=== PATIENT | female | born 1950 | race Caucasian/White ===

== ENCOUNTER 2021-05-31 05:55 | Day surgery (SDC) | payer MEDICARE, OTHER ==
[~2021-05-31] VITALS: Ht 147.3 cm; Wt 98.0 kg
[~2021-05-31 05:55] MED LIST: ALLERCLEAR10 MG PO; ANTACID ULTRA1177 MG PO; CLONAZEPAM1 MG PO; COLESTID1 GM PO; CRANBERRY CONC500 MG PO; DOK250 MG PO; FEOSOL325 MG PO; GAS RELIEF80 MG PO; GLUCOPHAGE500 MG PO; LAMOTRIGINE200 M1 PO; LANTUS SOL100 UNIT/1 SUB-Q; LEVOTHYROXINE125 MCG PO; MAPAP325 MG PO; METOPROLOL SUCC50 MG PO; RISPERDAL M-TAB3 MG PO; RISPERIDONE1 MG PO; ZESTRIL40 MG PO
[2021-05-31] MEDS ORDERED: OMEPRAZOLE20 MG PO (06:27)
[2021-05-31] MEDS ORDERED: LEVEMIR FL100 UNIT/2 (06:28)
--- NOTE | 2021-05-31 07:15 | NUR ---
0620 caregiver gave info for pt. pt talks with words randomly. 0624 oral versed given. 0650 getting relaxed. able to start iv. e commerce marketing analyst called to come given more sedation so wouldnt pull iv out. 0710 blood drawn for labs. pt tolerating well.
--- NOTE | 2021-05-31 08:31 | NUR ---
05/31/21 0831 KEVIN MOROCHO 0814-PATIENT TO PACU ON 6L VIA MASK. PATIENT IS NONAROUSABLE. ORAL AIRWAY IN PLACE. RESP EVEN AND UNLABORED.
--- NOTE | 2021-05-31 10:13 | NUR ---
O2 WEANED TO ROOM AIR. SPO2 REMAINS ABOVE 93% ON ROOM AIR. EATS PUDDING. REFUSES BP AND HITS THIS NURSE. REASSURABLE AND CALMS EASILY BUT CANNOT HOLD STILL FOR BP.
--- NOTE | 2021-05-31 11:13 | NUR ---
PT EATING PUDING WITHOUT PROBLEM. TAKES SIPS OF WATER. REVIEWED DISCHARGE INSTRUCTIONS WITH CAREGIVER AND PROVIDED COPY OF DISCHARGE INSTRUCTION. PT DRESSES WITH HELP OF CAREGIVER. STEADY ON FEET WITH ONE PERSON STAND BY ASSIST. WHEELED TO VAN AND ASSISTED PATIENT GETTING IN.
== END 2021-05-31 11:05 | disposition home or self-care (01) ==
LOC: DS 05:55 → OPS 05:55 → DS 06:45 → OPS 11:05
PROVIDERS: ATTEND Dentist General Practice
PROC: 0CQW0Z1 Repair of Upper Tooth, Multiple, Open Approach (ICD-10-PCS; principal; 2021-05-31 06:45)
DX: K08.409 Partial loss of teeth, unspecified cause, unspecified class (principal); K05.6 Periodontal disease, unspecified; E11.9 Type 2 diabetes mellitus without complications; Z79.4 Long term (current) use of insulin
CPT/HCPCS: 00170; 70310; 80048; 85025; J0330; J1100; J1885; J2250; J2405; J2704; J2765; J3010; J7121

== ENCOUNTER 2024-03-04 18:48 | Inpatient (IN) | payer MEDICARE, OTHER ==
[~2024-03-04] VITALS: Ht 154.9 cm; Wt 49.4 kg
[~2024-03-04 18:48] MED LIST changes: -ANTACID ULTRA1177 MG PO; +ARTIFICIAL TEA1 EACH OPTH; +CALCIUM500 MG PO; +CLOTRIMAZOLE30 ML TOP; +COLACE100 MG PO; -CRANBERRY CONC500 MG PO; +CRANBERRY425 MG PO; +DEEP SEA44 ML NAS; -DOK250 MG PO; +LACTULOSE10 GM PO; +LAMICTAL25 MG PO; -LAMOTRIGINE200 M1 PO; +LEVEMIR FL100 UNIT/2; -MAPAP325 MG PO; +METOPROLOL TART50 MG PO; +MULTI VITAMIN1 EACH PO; +OMEPRAZOLE20 MG PO; +PRENATAL PLUS1 EAC2 PO; +ROSUVASTATIN CAL5 MG PO; +TOUJEO MAX300 UNIT/1; +TRAMADOL HCL50 MG PO; +TYLENOL325 MG PO
--- OUTSIDE RECORDS SUMMARY | 2024-03-04 18:55 | XMS ---
PreManage Notification: SANTI FRAGOSO Security [employer] Operator Events No recent Security Events currently on file CRITERIA MET - [facility] - 2 Visits in 30 Days CARE PROVIDERS -, [facility]ist: Beveller Operator [facility] PHONE: [phone] - [place]- Dentist: Beveller Operator [facility] PHONE: [phone] [place], [facility]/Center: [facility] ([facility]) PHONE: [phone] Alfredo has no Care Guidelines for this patient. E.D. VISIT COUNT (12 MO.) [address] Elvira Arthur (Mauri Dotson) 1 WILLIE Ramos TOTAL 5 NOTE: Visits indicate total known visits. ED/UCC VISIT TRACKING (12 MO.) 03/04/2024 18:49 [facility] TYPE: Emergency COMPLAINT: - STOMACH PAIN 03/04/2024 15:00 [facility] Sandhya Dotson TETE (Mauri Dotson) TYPE: Emergency DIAGNOSES: - Epigastric pain - Unspecified abdominal pain - abd pain - Abdominal Pain 03/01/2024 19:06 [facility] Mauri Dotson TETE (Mauri Dotson) TYPE: Emergency DIAGNOSES: - Chronic vascular disorders of intestine - Hematuria, unspecified - Urinary tract infection, site not specified - Abdominal Pain - poss UTI 11/23/2023 15:49 [facility] Mauri Doston TETE (Mauri Dotson) TYPE: Emergency DIAGNOSES: - Type 2 diabetes mellitus with hyperglycemia - Elevated Blood Sugar (Asymptomatic) - High Blood Sugar (Symptomatic) 10/10/2023 12:13 [facility] Mauri Dotson TETE (Mauri Dotson) TYPE: Emergency DIAGNOSES: - Hyperglycemia, unspecified - High blood pressure - High Blood Sugar (Symptomatic) INPATIENT VISIT TRACKING (12 MO.) No inpatient visits to display in this time frame [email or web address]
[2024-03-04] MEDS ORDERED: MORPHINE SULFATE 4 MG/ML VIAL IV ONE (19:45)
[2024-03-04] MEDS ORDERED: ondansetron HCL 4 MG/2 ML VIAL IV ONE (19:45)
[2024-03-04 20:21] LABS: BASOPHILS 1.1 % (0-2); EOSINOPHILS 3.8 % (0-6); HEMATOCRIT 39.7 % (35.0-50.0); HEMOGLOBIN 13.6 g/dL (12.0-18.0); LYMPHOCYTES 16.4 % (24-44); MCH 32.9 (27-36); MCHC 34.3 g/dl (30-36); MCV 95.9 fl (81-99); MONOCYTES 8.9 % (0-12); NEUTROPHILS 69.8 % (39-80); PLATELET COUNT 207 K/uL (140-440); RBC 4.14 M/ul (4.3-5.7); RDW 12.6 (10.5-15.0)
[2024-03-04 20:30] LABS: ALBUMIN 3.1 g/dL (3.4-5.0); ALBUMIN/GLOBULIN RATIO 0.78 (1.1-2.4); ANION GAP 13.5 (7-21); BILIRUBIN, TOTAL 0.2 ng/dL (0.2-1.0); BUN/CREATININE RATIO 12.22 (6.0-28.6); CALCIUM 9.3 mg/dL (8.5-10.1); CREATININE, SERUM 0.9 mg/dL (0.55-1.02); MAGNESIUM 1.4 mg/dL (1.8-2.4); POTASSIUM 4.5 mmol/L (3.5-5.1); PROTEIN, TOTAL 7.1 g/dL (6.4-8.2)
[2024-03-04] MEDS ORDERED: levoFLOXacin 500 MG/100 ML BAG IV ONE (20:30)
[2024-03-04] MEDS ORDERED: PIPERACILLIN/TAZOBACTAM 3.375 GM in DEXTROSE 5% 100 ML IV ONE (20:30)
[2024-03-04] MEDS ORDERED: DEXTROSE 5% 100 ML IV ONE (20:34)
[2024-03-04 20:55] LABS: LACTIC ACID, BLOOD 0.6 mmol/L (0.4-2.0)
[2024-03-04] MEDS ORDERED: MAGNESIUM SULFATE 2 GM/50 ML BAG IV ONE (21:15)
[2024-03-04] MEDS ORDERED: CEFDINIR300 MG PO (21:34)
[2024-03-04] MEDS ORDERED: FEROSUL325 MG PO (21:35)
[2024-03-04] MEDS ORDERED: LACTULOSE10 GM/15 M PO (21:36)
[2024-03-04] MEDS ORDERED: METFORMIN HCL500 MG PO (21:37)
[2024-03-04] MEDS ORDERED: MILK OF MA400 MG/5 M PO (21:37)
[2024-03-04] MEDS ORDERED: ondansetron HCL 4 MG/2 ML VIAL IV PRN (22:00)
[2024-03-04] MEDS ORDERED: DEXTROSE 5% 1,000 ML IV PRN (22:00)
[2024-03-04] MEDS ORDERED: ACETAMINOPHEN 325 MG TAB PO PRN (22:00)
[2024-03-04] MEDS ORDERED: DEXTROSE 50% 50 ML SYR IV PRN ×2 (22:00)
[2024-03-04] MEDS ORDERED: IBLOOD GLUCOSE TEST STRIP 1 EA TEST XX PRN (22:00)
[2024-03-04] MEDS ORDERED: GLUCAGON,HUMAN RECOMBINANT 1 MG/ML VIAL SUB-Q PRN (22:00)
[2024-03-04] MEDS ORDERED: LACTATED RINGER'S 1,000 ML IV SCH (22:00)
[2024-03-04 22:31] VITALS: BP 174/84
[2024-03-04] MEDS ORDERED: TOUJEO SOL300 UNIT/1 SUB-Q (22:42)
--- NOTE | 2024-03-04 22:45 | NUR ---
PATIENT TO FLOOR BY LIBRARY CIRCULATION CLERK. PATIENT TRANSFERRED FROM STRETCHER TO BED WITH SBA. SKIN ASSESSMENT COMPLETE. ASSESSMENT COMPLETE. CAREGIVER IN ROOM. CAREGIVER STATES THAT PATIENT WILL PRETEND TO CHOKE AND GRAB AT STAFF UPON OCCASION AND "THIS IS NORMAL FOR HER". CAREGIVER STATES NOT TO WORRY WHEN SHE ACTS LIKE SHE IS CHOKING, AND SHE SWALLOWS PILLS WELL WITH PUDDING. PATIENT IV FLUID INFUSING PER ORDER. PATIENT BED ALARM ON FOR SAFETY. PATIENT AND CAREGIVER EDUCATED TO ROOM AND CALL LIGHT. PATIENT HAS NO FURTHER NEEDS. CALL LIGHT IN REACH.
[2024-03-04] MEDS ORDERED: risperiDONE 1 MG TAB PO SCH (23:21)
[2024-03-04] MEDS ORDERED: DICLOFENAC 1% TOPICAL GEL TOP PRN (23:30)
[2024-03-04] MEDS ORDERED: LORazepam 2 MG/ML VIAL IV PRN (23:30)
[2024-03-04] MEDS ORDERED: LIDOCAINE HCL 4% 1 EACH PATCH TD SCH (23:45)
[2024-03-05] VITALS (10 sets, daily range): BP systolic 144–170; BP diastolic 67–99
--- NOTE | 2024-03-05 00:04 | NUR ---
SCHEDULED MEDICATION ADMINISTERED FUAD ELLISON. PATIENT ARIANA WELL. PATIENT REQUESTING DIET COKE. NO DIET COKE ON FLOOR, DIET SPRITE PROVIDED. PATIENT NOW NPO AT MIDNIGHT. FOOD AND DRINK REMOVED. CAREGIVER AWARE OF PATIENT NPO STATUS. LIDOCANE PATCH APPLIED TO LEFT LEG. NO FURTHER NEEDS. BED ALARM ON FOR SAFETY. CALL LIGHT IN REACH.
--- NOTE | 2024-03-05 01:23 | NUR ---
VS OBTAINED AND RECORDED. PATIENT ARIANA WELL. CAREGIVER AT BEDSIDE. NO FURTHER NEEDS. CALL LIGHT IN REACH.
--- NOTE | 2024-03-05 04:11 | NUR ---
THIS RN HEARD PATIENT SHOUTING OUT FROM ROOM. PATIENT CAREGIVER STATES THAT THIS BEHAVIOR IS NORMAL OTHER THAN HER NOT SLEEPING AT ALL. THIS RN WAS STANDING AT BEDSIDE, PATIENT ATTEMPTED TO KICK. THIS RN OFFERED PRN ANXIETY/AGITATION MEDICATION. PATIENT THAN THREW HER PILLOW AT THIS RN AND THEN SAID "GET OU!". PRN MEDICATION ADMINISTERED. BED ALARM ON FOR SAFETY. CALL LIGHT IN REACH.
[2024-03-05 05:25] LABS: BASOPHILS 0.7 % (0-2); EOSINOPHILS 3.4 % (0-6); HEMATOCRIT 38.1 % (35.0-50.0); HEMOGLOBIN 12.8 g/dL (12.0-18.0); LYMPHOCYTES 18.5 % (24-44); MCH 32.5 (27-36); MCHC 33.5 g/dl (30-36); MCV 96.7 fl (81-99); MONOCYTES 11.6 % (0-12); NEUTROPHILS 65.8 % (39-80); PLATELET COUNT 192 K/uL (140-440); RBC 3.94 M/ul (4.3-5.7); RDW 12.5 (10.5-15.0)
[2024-03-05 05:39] LABS: ALBUMIN 2.9 g/dL (3.4-5.0); ALBUMIN/GLOBULIN RATIO 0.74 (1.1-2.4); ANION GAP 12.5 (7-21); BILIRUBIN, TOTAL 0.3 ng/dL (0.2-1.0); BUN/CREATININE RATIO 9.78 (6.0-28.6); CREATININE, SERUM 0.92 mg/dL (0.55-1.02); PHOSPHORUS, INORGANIC 3.8 mg/dL (2.5-4.9); POTASSIUM 4.5 mmol/L (3.5-5.1); PROTEIN, TOTAL 6.8 g/dL (6.4-8.2)
--- NOTE | 2024-03-05 06:53 | NUR ---
PATIENT INCONTINENT OF URINE. NEW BEDDING, BRIEF, DAYANA, AND SLIDE SHEET PLACED. PUREWICK PLACED AFTER DESTINI CARE PROVDIED. BED ALARM ON FOR SAFETY. NO CURRENT NEEDS. CALL LIGHT IN REACH.
[2024-03-05] MEDS ORDERED: LEVOTHYROXINE SODIUM 125 MCG TAB PO SCH (07:00)
[2024-03-05] MEDS ORDERED: CEFEPIME HCL/D5W 1 GM/100 ML PIGGYBACK IV SCH (07:30)
[2024-03-05] MEDS ORDERED: IBLOOD GLUCOSE TEST STRIP 1 EA TEST VI SCH ×2 (08:00→20:00)
[2024-03-05] MEDS ORDERED: INSULIN LISPRO 100 UNIT/ML ML SUB-Q SCH ×2 (08:00→21:00)
--- NOTE | 2024-03-05 08:28 | NUR ---
PATIENT IN BED AT THIS TIME. NONDESTRUCTIVE TESTER WENT INTO PATIENTS ROOM FOR HOURLY ROUNDINGS AND FOR BLOODSUGAR CHECKS. CAREGIVER AT BEDSIDE. CALL LIGHT WITHIN REACH, NO FURTHER NEEDS AT THIS TIME.
[2024-03-05] MEDS ORDERED: ENOXAPARIN SODIUM 40 MG/0.4 ML SYR SUB-Q SCH (09:00)
[2024-03-05] MEDS ORDERED: PANTOPRAZOLE SODIUM 40 MG/10 ML VIAL IV SCH (09:00)
[2024-03-05] MEDS ORDERED: lamoTRIgine 25 MG TAB PO SCH (09:00)
[2024-03-05] MEDS ORDERED: lisinopriL 20 MG TAB PO SCH (09:00)
[2024-03-05] MEDS ORDERED: LIDOCAINE HCL 4% 1 EACH PATCH TD SCH (09:00)
[2024-03-05] MEDS ORDERED: METOPROLOL TARTRATE 50 MG TAB PO SCH (09:00)
[2024-03-05] MEDS ORDERED: CEFEPIME HCL/D5W 2 GM/100 ML PIGGYBACK IV SCH (09:00)
--- NOTE | 2024-03-05 09:09 | NUR ---
ADMIN ATIVAN 1MG IV SLOW PUSH FOR ANXIETY. PATIENT YELLING, SHE IS ABLE TO CALM DOWN A BIT. PATIENT SITTER AT BEDSIDE FROM PATIENT'S FACILITY.
[2024-03-05] MEDS ORDERED: FAMOTIDINE20 MG PO (10:49)
--- NOTE | 2024-03-05 11:20 | NUR ---
Patient left unit with charge nurse for stat ct of abdomen.
[2024-03-05] MEDS ORDERED: PHARMACY RENAL DOSE ADJUSTMENT 1 DOSE MISC PO SCH (12:00)
--- NOTE | 2024-03-05 12:04 | NUR ---
PATIENT BLADDER SCANNED AT THIS TIME. PER BEDSIDE SCANNER-897ML NOTED. PT UP TO BEDSIDE COMMODE TO VOID AT THIS TIME. PT VOIDED 1150ML CLEAR YELLOW URINE. DRY BRIEF PLACED AT THIS TIME. FACILITY SITTER REMAINS AT BEDSIDE, SHE HAS BEEN HELPING WITH BASIC ADL CARES.
--- NOTE | 2024-03-05 12:16 | NUR ---
PATIENT IN BED AT THIS TIME. BLOOD SUGAR HAS BEEN CHARTED. CALL LIGHT WITHIN REACH, NO FURTHER NEEDS AT THIS TIME.
--- NOTE | 2024-03-05 13:26 | NUR ---
ELO FROM DR. GARCÍA TO PLACE ORDER FOR RECTAL SUPPOSITORY DAILY FOR CONSTIPATION.
[2024-03-05] MEDS ORDERED: bisacodyL 10 MG SUPP PR SCH (13:30)
--- NOTE | 2024-03-05 13:42 | NUR ---
MED REC COMPLETE
--- NOTE | 2024-03-05 14:50 | NUR ---
Ativan 1mg iv admin for agitation. Rectal suppository admin per order for constipation.
--- NOTE | 2024-03-05 17:10 | NUR ---
BALTA from Dr. Lewis to change diet order to NPO. Order placed at this time.
--- NOTE | 2024-03-05 17:35 | NUR ---
Patient resting in bed, eyes closed, respirations even and non labored. Patient has no distress. Bed alarm intact. IV fluids infusing. Sitter remains at bedside. Personal supplies and call light within reach.
--- NOTE | 2024-03-05 19:28 | NUR ---
RECEIVED REPORT FROM DAY SHIFT RN. PATIENT IS RESTING IN BED. CAREGIVER AT BEDSIDE. NO NEEDS NOTED. NAD NOTED. CALL LIGHT IN REACH.
--- NOTE | 2024-03-05 20:42 | NUR ---
PATIENT HAD BM. MD UPDATED. NEW ORDERS PLACED.
[2024-03-05] MEDS ORDERED: LIDOCAINE PATCH REMOVAL 1 EA TD SCH (21:00)
--- NOTE | 2024-03-05 22:15 | NUR ---
PATIENT IS RESTING IN BED WITH EYES CLOSED, RR 16. CALL LIGHT IN REACH. IV ABX INFUSING PER ORDER. CAREGIVEER AT BEDSIDE. NO NEEDS NOTED. CALL LIGHT IN REACH. BED ALARM ON FOR SAFETY.
--- NOTE | 2024-03-06 00:13 | NUR ---
PATIENT IS RESTING IN BED PLAYING WITH HER BABY DOLL. NAD NOTED. CAREGIVER AT DESIDE. NO NEEDS NOTED. CALL LIGHT IN REACH. BED ALARM ON FOR SAFETY. IV ABX INFUSING PER ORDER.
--- NOTE | 2024-03-06 02:21 | NUR ---
PATIENT IS RESTING IN BED WITH EYES CLOSED, RR 15. CALL LIGHT IN REACH. CAREGIVER AT BEDSIDE. PATIENT IS NOW SL PER ORDER. NAD NOTED. CALL LIGHT IN REACH. BED ALARM ON FOR SAFETY.
--- NOTE | 2024-03-06 04:30 | NUR ---
PATIENT IS RESTING IN BED WITH EYES CLOSED, RR 16. CALL LIGHT IN REACH. BED ALARM ON FOR SAFETY. CAREGIVER AT BEDSIDE.
[2024-03-06 05:16] VITALS: BP 148/84
[2024-03-06 05:23] LABS: BASOPHILS 0.2 % (0-2); EOSINOPHILS 2.8 % (0-6); HEMATOCRIT 39.4 % (35.0-50.0); HEMOGLOBIN 13.7 g/dL (12.0-18.0); LYMPHOCYTES 11.1 % (24-44); MCH 33.4 (27-36); MCHC 34.8 g/dl (30-36); MCV 95.9 fl (81-99); MONOCYTES 8.1 % (0-12); NEUTROPHILS 77.8 % (39-80); PLATELET COUNT 230 K/uL (140-440); RBC 4.11 M/ul (4.3-5.7); RDW 12.4 (10.5-15.0)
[2024-03-06 05:43] LABS: ALBUMIN 3.1 g/dL (3.4-5.0); ALBUMIN/GLOBULIN RATIO 0.82 (1.1-2.4); ANION GAP 13.5 (7-21); BILIRUBIN, TOTAL 0.4 ng/dL (0.2-1.0); BUN/CREATININE RATIO 10.98 (6.0-28.6); CALCIUM 9.3 mg/dL (8.5-10.1); CREATININE, SERUM 0.91 mg/dL (0.55-1.02); MAGNESIUM 1.7 mg/dL (1.8-2.4); POTASSIUM 4.5 mmol/L (3.5-5.1); PROTEIN, TOTAL 6.9 g/dL (6.4-8.2)
--- NOTE | 2024-03-06 05:44 | NUR ---
LAB PRESENT IN ROOM TO DRAW BLOOD. PATIENTS VITALS TAKEN AND RECORDED. PATIENT UP TO BSC A SBA. PATIENT ABLE TO VOID. PATIENT IS BACK IN BED RESTING. PATIENTS INTAKE AND OUTPUT RECORDED. PATIENTS AM MEDS GIVEN IN PUDDING. PATIENTS AM IV ABX INFUSING PER ORDER. PATIENT TOLERATED ACTIVITIEES WELL. NAD NOTED. PATIENTS CAREGIVER AT BEDSIDE AND DENIES ANY NEEDS. CALL LIGHT IN REACH. BED ALARM ON FOR SAFETY.
--- NOTE | 2024-03-06 06:14 | NUR ---
PATIENT IS RESTING IN BED IN RIGHT SIDE WITH EYES CLOSED, RR 15. CALL LIGHT IN REACH. IV INFUSING PER ORDER. BED ALARM ON FOR SAFETY.
[2024-03-06] MEDS ORDERED: POLYETHYLENE GLYCOL 3350 1 PACKET PO ONE ×2 (07:00→09:30)
--- NOTE | 2024-03-06 07:00 | NUR ---
RECIEVED REPORT FROM MEG BURGOS. PATIENT SLEEPING IN BED. RESPIRATIONS EVEN AND UNLABORED. CAREGIVER AT THE BEDSIDE. CALL LIGHT IN REACH.
--- NOTE | 2024-03-06 07:15 | NUR ---
RECEIVED REPORT FROM MEG BURGOS. PT RESTING IN BED WITH EYES CLOSED, BREATHING EVEN AND UNLABORED. CALL LIGHT WITHIN REACH, CAREGIVER AT THE BEDSIDE.
[2024-03-06] MEDS ORDERED: IBLOOD GLUCOSE TEST STRIP 1 EA TEST VI SCH (08:00)
[2024-03-06] MEDS ORDERED: NITROFURANTOIN MONOHYD MACROCR 100 MG CAP PO SCH (08:00)
--- NOTE | 2024-03-06 08:26 | NUR ---
IN ROOM TO ROUND ON PATIENT. PATIENT AWAKE IN BED. CAREGIVER AT THE BEDSIDE FEEDING PATIENT BREAKFAST. NO NEEDS IDENTIFIED AT THIS TIME. CALL LIGHT IN REACH.
[2024-03-06] MEDS ORDERED: PANTOPRAZOLE SODIUM 40 MG TABEC PO SCH (09:00)
[2024-03-06] MEDS ORDERED: lisinopriL 20 MG TAB PO SCH (09:00)
[2024-03-06] MEDS ORDERED: FLU VACC TS2024(65UP)/MF59C/PF 1 EACH SYR IM SCH (09:00)
[2024-03-06] MEDS ORDERED: clonazePAM 1 MG TAB PO SCH (09:02)
[2024-03-06 09:45] VITALS: BP 140/71
[2024-03-06] MEDS ORDERED: SENNA LAX8.6 MG PO (09:53)
[2024-03-06] MEDS ORDERED: NITROFURANTOIN100 M1 PO (09:54)
[2024-03-06] MEDS ORDERED: FLU VACC TS2024(65UP)/MF59C/PF 1 EACH SYR ONE (13:41)
[2024-03-06 13:56] VITALS: BP 116/76
[2024-03-06] MEDS ORDERED: SENNOSIDES 1 TAB PO SCH (21:00)
[2024-03-07 12:18] LABS: HEPATITIS A ANTIBODY, IGM Negative (Negative); HEPATITIS B CORE ANTIBODY, IGM Negative (Negative); HEPATITIS B SURFACE ANTIGEN Negative (Negative); HEPATITIS C AB CIA INTERP Negative (Negative); HEPATITIS C ANTIBODY CIA INDEX 0.02 IV (())
== END 2024-03-06 14:17 | disposition home or self-care (01) | DRG 690 ==
LOC: ED 18:48 → MS 22:07
PROVIDERS: Family Medicine; ADMIT Student in an Organized Health Care Education/Training Program; ATTEND Student in an Organized Health Care Education/Training Program
DX: N39.0 Urinary tract infection, site not specified (principal); K56.7 Ileus, unspecified; R65.10 Systemic inflammatory response syndrome (SIRS) of non-infectious origin without acute organ dysfunction; E11.9 Type 2 diabetes mellitus without complications; Z66 Do not resuscitate; E03.9 Hypothyroidism, unspecified; E78.00 Pure hypercholesterolemia, unspecified; F25.9 Schizoaffective disorder, unspecified; K21.9 Gastro-esophageal reflux disease without esophagitis; I10 Essential (primary) hypertension; M19.91 Primary osteoarthritis, unspecified site; H54.61 Unqualified visual loss, right eye, normal vision left eye; F79 Unspecified intellectual disabilities; R74.01 Elevation of levels of liver transaminase levels; F60.9 Personality disorder, unspecified; F63.9 Impulse disorder, unspecified; M19.90 Unspecified osteoarthritis, unspecified site; Z79.899 Other long term (current) drug therapy; Z79.890 Hormone replacement therapy; Z79.84 Long term (current) use of oral hypoglycemic drugs
CPT/HCPCS: 36415; 74018; 74178; 80053; 80074; 83605; 83735; 84100; 85025; 87088; 90694; 96365; 96367; 96375; 99284-25; A9270; J0692; J1650; J1815; J1956; J2060; J2270; J2405; J2470; J2543; J3475; J7121; Q9967

== ENCOUNTER 2025-01-26 10:35 | Day surgery (SDC) | payer MEDICARE, OTHER ==
[2024-11-16 18:23] VITALS: BP 142/52
[2025-01-17 16:16] VITALS: BP 142/52
[~2025-01-26] VITALS: Ht 154.9 cm; Wt 41.0 kg
[~2025-01-26 10:35] MED LIST changes: +CEFDINIR300 MG PO; +FAMOTIDINE20 MG PO; +FEROSUL325 MG PO; +GERI-KOT8.6 MG PO; +GLUCAGON,HUMAN RECOMBINANT 1 MG/ML VIAL ONE; +IBLOOD GLUCOSE TEST STRIP 1 EA TEST VI PRN; +LACTATED RINGER'S 1,000 ML IV SCH; +LACTULOSE10 GM/15 M PO; +LIDOCAINE HCL 1% 5 ML SDV INJ ONE; +METFORMIN HCL500 MG PO; +MILK OF MA400 MG/5 M PO; +NITROFURANTOIN100 M1 PO; +SENNA LAX8.6 MG PO; +TOUJEO SOL300 UNIT/1 SUB-Q
[2025-01-26 11:10] LABS: BASOPHILS 1.0 % (0.1-1.2); EOSINOPHILS 3.9 % (0.7-5.8); LYMPHOCYTES 22.5 % (19.3-51.7); MCH 32.5 PG (25.6-32.2); MCHC 33.6 g/dL (32.2-35.5); MCV 96.7 fL (79.4-94.8); MONOCYTES 8.0 % (4.7-12.5); NEUTROPHILS 64.3 % (34.0-71.1); RBC 4.19 M/uL (3.93-5.22)
[2025-01-26 11:12] VITALS: BP 174/66
[2025-01-26] MEDS ORDERED: TYLENOL325 MG PO (11:21)
[2025-01-26] MEDS ORDERED: GAS RELIEF80 MG PO (11:23)
[2025-01-26] MEDS ORDERED: GERI-KOT8.6 MG PO (11:25)
[2025-01-26 11:26] LABS: ALT (SGPT) 26.0 U/L (14-59); AST (SGOT) 19.0 U/L (15-37); GLOMERULAR FILTRATION RATE,EST 93.0 mL/min (>60); PROTEIN, TOTAL 6.7 g/dL (6.4-8.2); UREA NITROGEN 6.0 mg/dL (7-18)
[2025-01-26] MEDS ORDERED: LIDOCAINE HCL 2% 5 ML SDV ONE (11:26)
[2025-01-26 12:32] VITALS: BP 144/77
--- NOTE | 2025-01-26 13:01 | NUR ---
01/26/25 1301 Maite Muniz 1222 PT ARRIVED TO PACU ON RA, PT ASLEEP AND REACTIVE TO TACTILE STIMULI AND EASILY FALLS BACK TO SLEEP. 1228 PT WAKES AND STARTS TO GRAB AT HER BLACKETS, PT OWN STUFF TOY AND BOOK GIVEN. HOB INCREASED. 1245 PT CAREGIVERS AT BEDSIDE. PT ASKING FOR "DIET COKE." PT SAT ON EDGE OF BED WITH RNS HELP. 1255 PT SINGING AND ASKING FOR DIET COKE. VSS. PT DRESSED WITH CAREGIVERS AND TRANSFERED TO HER OWN WC AND DC INSTRUCITONS GIVEN TO CAREGIVERS. ALL QUESTIONS ANSWERED. PT DC WITH CAREGIVERS VIA HER OWN WC AND DC PAPERWORK GIVEN.
--- NOTE | 2025-01-27 08:48 | OR ---
[facility] [address] [place], [place] [address] Signed DATE OF OPERATION: 01/26/2025 SURGEON: Deshawn Cook DO PREOPERATIVE DIAGNOSES: 1. Abdominal pain. 2. Rectal bleeding. POSTOPERATIVE DIAGNOSES: 1. Abdominal pain. 2. Rectal bleeding. 3. Melanosis coli. 4. Nonspecific colitis. PROCEDURE PERFORMED: Colonoscopy. ANESTHESIA: IV sedation. ESTIMATED BLOOD LOSS: None. DRAINS: None. COMPLICATIONS: None. DESCRIPTION OF PROCEDURE: The patient was brought to the GI lab, placed in the supine position. After induction of IV sedation, the patient was placed in the left lateral position and padded to the satisfaction of anesthesia. The Olympus video colonoscope was then introduced through the anus into the rectosigmoid, and while insufflating and advancing under direct visualization, the scope was advanced through the rectosigmoid, sigmoid colon, descending colon, transverse colon, ascending colon into the cecum. The mucosal surfaces were then inspected. The colon was insufflated. No intrinsic or extrinsic mass was noted in the cecum or ascending colon. Some melanosis coli was noted in this area, but it was not severe. The scope was brought back into the transverse colon. No intrinsic or extrinsic masses, no lesions or ulcerations were appreciated as well. Some Electronically Signed By: DESHAWN COOK DO 01/27/25 0848 PATIENT NAME: SANTI FRAGOSO OPERATIVE REPORT DATE OF : 54 REPORT #: [id number] PHYSICIAN: DESHAWN COOK DO PCP: OTHER PCP REPORT IS CONFIDENTIAL AND NOT TO BE RELEASED WITHOUT AUTHORIZATION [facility] [address] [place], [place] [address] Signed melanosis coli was noted as well. Scope was brought back into the descending colon. Some nonspecific colitis was noted. No ulcerations were noted. No intrinsic or extrinsic masses were noted. Melanosis coli persisted. The scope was brought back into the sigmoid colon. No intrinsic or extrinsic masses were noted. Some nonspecific colitis and melanosis coli were noted as well. The scope was brought back into the rectosigmoid. No evidence of intrinsic or extrinsic masses were appreciated. The scope was then withdrawn. The patient tolerated the procedure well and taken to recovery room in satisfactory condition. DO MARVEL Lopez/JAMSHID /[id number] Copies: ~ Electronically Signed By: DESHAWN COOK DO 01/27/25 0848 PATIENT NAME: SANTI FRAGOSO OPERATIVE REPORT DATE OF : 54 REPORT #: [id number] PHYSICIAN: DESHAWN COOK DO PCP: OTHER PCP REPORT IS CONFIDENTIAL AND NOT TO BE RELEASED WITHOUT AUTHORIZATION
== END 2025-01-26 12:55 | disposition home or self-care (01) ==
LOC: DS 10:35
PROVIDERS: ATTEND Surgery
PROC: 0DJD8ZZ Inspection of Lower Intestinal Tract, Via Natural or Artificial Opening Endoscopic (ICD-10-PCS; principal; 2025-01-26 13:00)
DX: K52.9 Noninfective gastroenteritis and colitis, unspecified (principal); K63.89 Other specified diseases of intestine; K62.5 Hemorrhage of anus and rectum; E11.9 Type 2 diabetes mellitus without complications; I10 Essential (primary) hypertension; E03.9 Hypothyroidism, unspecified; K21.9 Gastro-esophageal reflux disease without esophagitis; F25.9 Schizoaffective disorder, unspecified; Z79.84 Long term (current) use of oral hypoglycemic drugs; Z79.899 Other long term (current) drug therapy
CPT/HCPCS: 00811; 36415; 80053; 85025; J1610; J2003; J2704